=== PATIENT | female | born 1950 | race African-American/Black ===

== ENCOUNTER 2018-08-11 18:48 | Emergency (ER) | payer MEDICARE, OTHER ==
[~2018-08-11] VITALS: Ht 165.1 cm; Wt 106.6 kg
[~2018-08-11 18:48] MED LIST: AMLO10TA PO; ASPI81CT20 PO; CIPR500T4 PO; VALS160T2 PO
[2018-08-11 19:11] VITALS: BP 170/94
--- NOTE | 2018-08-11 19:19 | NUR ---
PT AMBULATED TO BED 1
--- NOTE | 2018-08-11 19:24 | NUR ---
PT TO ED WITH C/O R KNEE PAIN SUDDEN ONSET TODAY. PT DENIES INJURY OR TRAUMA. NO OBVIOUS S/S OF DEFORMITY. PT ABLE TO AMBULATE WITH ASSISTIVE DEVICE (CANE) WITH NO DIFFICULTY. PT PLACED INTO BED, PENDING MD WALLACE. PMH--HTN RX--DENIES
[2018-08-11] MEDS ORDERED: HYDROcodone/APAP 5/325 MG 1 TAB TAB PO ONE (20:25)
--- NOTE | 2018-08-11 21:54 | NUR ---
PT RESTING IN BED, VSS. ALL QUESTIONS ANSWERED.
--- NOTE | 2018-08-11 22:09 | NUR ---
Ultrasound at bedside.
[2018-08-11 23:06] VITALS: BP 151/76
== END 2018-08-11 23:06 | disposition home or self-care (01) ==
LOC: MED 18:48
DX: M17.11 Unilateral primary osteoarthritis, right knee (principal); I10 Essential (primary) hypertension; Z79.899 Other long term (current) drug therapy; Z90.49 Acquired absence of other specified parts of digestive tract
CPT/HCPCS: 73562; 93971; 99284; Q0092

== ENCOUNTER 2018-08-25 09:39 | Emergency (ER) | payer MEDICARE, OTHER ==
[~2018-08-25] VITALS: Ht 165.1 cm; Wt 104.3 kg
[2018-08-25 09:45] VITALS: BP 147/68
--- NOTE | 2018-08-25 09:53 | NUR ---
PT TO ER BED 4
--- NOTE | 2018-08-25 09:58 | NUR ---
Note undone in EDM - 08/25/18 at 1000 by [facility] BIB SELF. C/O SHARP R HIP PAIN AT 02/25 THAT INCREASES WITH MOVEMENT X4 DAYS, TREATED WITH ASPERCREAM WITH NO RELEF. DENIES FALL, TRAUMA OR INJURY. MEDHX:HTN, ARTHRITIS RX:BP MEDICINE (PT DOES NOT KNOW NAME)
--- NOTE | 2018-08-25 10:00 | NUR ---
BIB SELF WITH FWW WITH CHAIR. C/O SHARP R HIP PAIN AT 02/25 THAT INCREASES WITH MOVEMENT X4 DAYS, TREATED WITH ASPERCREAM WITH NO RELEF. DENIES FALL, TRAUMA OR INJURY. AAO X 4. PATIENT POSITIONED FOR COMFORT; HOB ELEVATED; BEDRAILS UP X2; BED DOWN. ER MADE AWARE OF PT STATUS. MEDHX:HTN, ARTHRITIS, HYPERLIPIDEMIA RX:AMLODIPINE, VALSARTAN, LYRICA Addendum: 08/25/18 at 1042 by [email or web address] med hx: HYSTERECTOMY (1997)
--- NOTE | 2018-08-25 10:00 | NUR ---
Note undone in EDM - 08/25/18 at 1024 by [facility] BIB SELF WITH FWW WITH CHAIR. C/O SHARP R HIP PAIN AT 02/25 THAT INCREASES WITH MOVEMENT X4 DAYS, TREATED WITH ASPERCREAM WITH NO RELEF. DENIES FALL, TRAUMA OR INJURY. AAO X 4. PATIENT POSITIONED FOR COMFORT; HOB ELEVATED; BEDRAILS UP X2; BED DOWN. ER MADE AWARE OF PT STATUS. MEDHX:HTN, ARTHRITIS RX:BP MEDICINE (PT DOES NOT KNOW NAME)
--- NOTE | 2018-08-25 10:19 | NUR ---
DR SCOTT AT BEDSIDE FOR PT EVALUATION
[2018-08-25] MEDS ORDERED: DEXAMETHASONE 10 MG/ML VIAL IM ONE (10:25)
[2018-08-25] MEDS ORDERED: KETOROLAC 60 MG/2 ML VIAL IM ONE (10:25)
--- NOTE | 2018-08-25 11:16 | NUR ---
PATIENT TAKEN VIA GURNEY BY [facility]
[2018-08-25 13:15] VITALS: BP 127/65
== END 2018-08-25 13:55 | disposition home or self-care (01) ==
LOC: MED 09:39
DX: M16.11 Unilateral primary osteoarthritis, right hip (principal); I10 Essential (primary) hypertension; Z79.899 Other long term (current) drug therapy
CPT/HCPCS: 72192; 96372; 99284; J1100; J1885

== ENCOUNTER 2018-12-14 10:26 | Emergency (ER) | payer MEDICARE, OTHER ==
[~2018-12-14] VITALS: Ht 165.1 cm; Wt 103.9 kg
[~2018-12-14 10:26] MED LIST changes: -ASPI81CT20 PO; -CIPR500T4 PO
[2018-12-14 10:32] VITALS: BP 123/71
--- NOTE | 2018-12-14 10:42 | NUR ---
PT BIB SELF C/O RASH X1 DAY. PT HAS RED PATCHY BLISTERY RASH ON RT BREAST THAT WRAPS AROUND TO THE BACK OF RT ARM. PT REPORTS PAIN AT 7/10 THAT IS TENDER TO TOUCH. PT TX WITH BENADRYL YESTERDAY, BUT REPORTS RASH WAS WORSE THIS MORNNG AND IS UNBALE TO SEE PCP UNTIL SUNDAY. PT DENIES N/V/D, FEVER, OR SICK CONTACTS. VSS. ER MD TO SEE PT. MEDHX:HTN RX:BP MEDICINE
[2018-12-14 12:01] VITALS: BP 148/73
--- NOTE | 2018-12-14 12:01 | NUR ---
Patient discharged with v/s stable. Written and verbal after care instructions given and explained. Patient alert, oriented and verbalized understanding of instructions. Ambulatory with steady gait. All questions addressed prior to discharge. ID band removed. Patient advised to follow up with PMD. Rx of VALACYCLOVUIR given. Patient educated on indication of medication including possible reaction and side effects. Opportunity to ask questions provided and answered.
== END 2018-12-14 17:10 | disposition home or self-care (01) ==
LOC: MED 10:26
DX: B02.9 Zoster without complications (principal); I10 Essential (primary) hypertension; Z79.899 Other long term (current) drug therapy
CPT/HCPCS: 99283

== ENCOUNTER 2019-10-03 15:19 | Emergency (ER) | payer MEDICARE, OTHER ==
[~2019-10-03] VITALS: Ht 165.1 cm; Wt 110.2 kg
[2019-10-03 15:50] VITALS: BP 149/82
[2019-10-03] MEDS ORDERED: KETOROLAC 30 MG/ML VIAL IM ONE (16:20)
[2019-10-03 17:23] LABS: BASOPHILS % (AUTO) 0.9 % (0.0-2.0); EOSINOPHILS # (AUTO) 0.2 K/uL (0-0.4); HEMATOCRIT 34.5 % (36-48); HEMOGLOBIN 11.2 g/dL (12.0-16.0); LYMPHOCYTES # (AUTO) 1.1 K/uL (2.5-16.5); LYMPHOCYTES % (AUTO) 34.8 % (20.5-51.1); MEAN CORPUSCULAR HEMOGLOBIN 32 pg (27-31); MEAN CORPUSCULAR HGB CONC 33 g/dL (33-37); MEAN CORPUSCULAR VOLUME 98.9 fL (80-94); MONOCYTES # (AUTO) 0.4 K/uL (0.8-1.0); MONOCYTES % (AUTO) 12.4 % (1.7-9.3); NEUTROPHILS # (AUTO) 1.4 K/uL (1.8-7.7); NEUTROPHILS % (AUTO) 46.9 % (42.2-75.2); PLATELET COUNT (AUTO) 140 K/uL (140-450); RED BLOOD CELL COUNT(AUTO) 3.49 MIL/uL (4.20-5.40); RED CELL DISTRIBUTION WIDTH 14.3 % (11.6-13.7)
[2019-10-03 17:40] LABS: ANION GAP 6.9 (8-16); CARBON DIOXIDE 31.5 mmol/L (21-32); CREATININE 1.1 mg/dL (0.6-1.3); POTASSIUM 4.4 mmol/L (3.5-5.1)
[2019-10-03 17:41] LABS: ALBUMIN 3.3 g/dL (3.4-5.0); TOTAL BILIRUBIN 0.3 mg/dL (0.0-1.0)
[2019-10-03 18:24] VITALS: BP 132/87
== END 2019-10-03 18:24 | disposition home or self-care (01) ==
LOC: MED 15:19
DX: L03.115 Cellulitis of right lower limb (principal); I10 Essential (primary) hypertension; Z90.49 Acquired absence of other specified parts of digestive tract; Z79.899 Other long term (current) drug therapy
CPT/HCPCS: 36415; 73700; 80053; 85025; 99284

== ENCOUNTER 2021-10-28 08:43 | Emergency (ER) | payer MEDICARE, OTHER ==
[~2021-10-28] VITALS: Ht 165.1 cm; Wt 116.6 kg
[2021-10-28 08:45] VITALS: BP 149/82
[2021-10-28] MEDS ORDERED: KETOROLAC 15 MG/ML VIAL IM ONE (09:25)
[2021-10-28 09:50] LABS: BASOPHILS % (AUTO) 0.7 % (0.0-2.0); EOSINOPHILS # (AUTO) 0.2 K/uL (0-0.4); EOSINOPHILS % (AUTO) 5.7 % (0.0-4.0); HEMATOCRIT 33.6 % (36-48); LYMPHOCYTES # (AUTO) 1.2 K/uL (2.5-16.5); LYMPHOCYTES % (AUTO) 34.1 % (20.5-51.1); MEAN CORPUSCULAR HEMOGLOBIN 30 pg (27-31); MEAN CORPUSCULAR HGB CONC 33 g/dL (33-37); MEAN CORPUSCULAR VOLUME 92.9 fL (80-94); MONOCYTES # (AUTO) 0.3 K/uL (0.8-1.0); MONOCYTES % (AUTO) 9.1 % (1.7-9.3); NEUTROPHILS # (AUTO) 1.8 K/uL (1.8-7.7); NEUTROPHILS % (AUTO) 50.4 % (42.2-75.2); PLATELET COUNT (AUTO) 160 K/uL (140-450); RED BLOOD CELL COUNT(AUTO) 3.61 MIL/uL (4.20-5.40); RED CELL DISTRIBUTION WIDTH 14.9 % (11.6-13.7); WHITE BLOOD COUNT (AUTO) 3.6 K/uL (4.8-10.8)
[2021-10-28 10:13] LABS: ALBUMIN 3.1 g/dL (3.4-5.0); ANION GAP 7.4 (8-16); ASPARTATE AMINOTRANSFERASE 22 U/L (15-37); CARBON DIOXIDE 29.9 mmol/L (21-32); CHLORIDE 108 mmol/L (98-107); CREATININE 1.1 mg/dL (0.6-1.3); GLUCOSE 98 mg/dL (74-106); POTASSIUM 4.3 mmol/L (3.5-5.1); SODIUM SERUM 141 mmol/L (136-145); TOTAL BILIRUBIN 0.5 mg/dL (0.0-1.0)
--- NOTE | 2021-10-28 10:25 | NUR ---
pt c/o right arm pain x2 weeks, hx of pinched nerve states pain has become more severe and pain medication is not working. denies cp or sob. no other symptoms. nsr on monitor.
[2021-10-28] MEDS ORDERED: GABAPENTIN 300 MG CAP PO ONE (12:00)
[2021-10-28] MEDS ORDERED: NAPR-54 PO (12:09)
[2021-10-28 12:42] VITALS: BP 127/79
[2021-10-28 17:26] LABS: UREA NITROGEN, BLOOD 26 mg/dL (7-18)
== END 2021-10-28 12:43 | disposition home or self-care (01) ==
LOC: MED 08:43
DX: S46.001A Unspecified injury of muscle(s) and tendon(s) of the rotator cuff of right shoulder, initial encounter (principal); I10 Essential (primary) hypertension
CPT/HCPCS: 36415; 71045; 73060; 80053; 84484; 85025; 96372; 99285; J1885; 93005

== ENCOUNTER 2023-03-14 06:15 | Emergency (ER) | payer MEDICARE, OTHER ==
[~2023-03-14] VITALS: Ht 165.1 cm; Wt 113.4 kg
[~2023-03-14 06:15] MED LIST changes: +NAPR-54 PO
[2023-03-14 06:32] VITALS: BP 136/71; PULSE 85; RESP 23; TEMP 97.9; O2SAT 96
[2023-03-14] MEDS ORDERED: MORPHINE SULFATE 4 MG/ML SYR IVP ONE (06:45)
[2023-03-14 07:14] LABS: APPEARANCE,URINE CLEAR (CLEAR); BILIRUBIN,URINE NEGATIVE (NEGATIVE); BLOOD, URINE TRACE-I (NEGATIVE); COLOR,URINE YELLOW (YELLOW); LEUKOCYTE ESTERASE ,URINE NEGATIVE (NEGATIVE); NITRITE, URINE NEGATIVE (NEGATIVE); PROTEIN,URINE 1+ (NEGATIVE); UGLUCOSE NEGATIVE (NEGATIVE); UROBILINOGEN,URINE 0.2 EU/dL (0.2 - 1)
[2023-03-14 07:37] LABS: BACTERIA,URINE 0-2 /HPF (None Seen); RBC,URINE 0-5 /HPF (0-5); WBC,URINE 0-5 /HPF (0-5)
[2023-03-14] MEDS ORDERED: MORPHINE SULFATE 4 MG/ML SYR ONE (08:06)
[2023-03-14 08:08] VITALS: O2SAT 96
[2023-03-14 08:18] LABS: BASOPHILS % (AUTO) 0.8 % (0.0-2.0); EOSINOPHILS # (AUTO) 0.1 K/uL (0-0.4); EOSINOPHILS % (AUTO) 2.4 % (0.0-4.0); HEMATOCRIT 30.8 % (36-48); HEMOGLOBIN 10.1 g/dL (12.0-16.0); LYMPHOCYTES # (AUTO) 0.9 K/uL (2.5-16.5); LYMPHOCYTES % (AUTO) 20.6 % (20.5-51.1); MEAN CORPUSCULAR HEMOGLOBIN 31 pg (27-31); MEAN CORPUSCULAR HGB CONC 33 g/dL (33-37); MONOCYTES # (AUTO) 0.5 K/uL (0.8-1.0); MONOCYTES % (AUTO) 10.5 % (1.7-9.3); NEUTROPHILS # (AUTO) 2.9 K/uL (1.8-7.7); NEUTROPHILS % (AUTO) 65.7 % (42.2-75.2); PLATELET COUNT (AUTO) 190 K/uL (140-450); RED BLOOD CELL COUNT(AUTO) 3.24 MIL/uL (4.20-5.40); RED CELL DISTRIBUTION WIDTH 15.7 % (11.6-13.7); WHITE BLOOD COUNT (AUTO) 4.4 K/uL (4.8-10.8)
[2023-03-14 08:41] LABS: LACTIC ACID 0.8 mmol/L (0.4-2.0)
[2023-03-14 08:43] LABS: INR 0.92 (0.8-1.2); PARTIAL THROMBOPLASTIN TIME 26.8 secs (22-35.6); PROTHROMBIN TIME 9.7 secs (10.8-13.4)
[2023-03-14 08:47] LABS: ALANINE AMINOTRANSFERASE 15 U/L (12-78); ALBUMIN 3.2 g/dL (3.4-5.0); ALKALINE PHOSPHATASE 93 U/L (50-136); ANION GAP 10.7 (8-16); ASPARTATE AMINOTRANSFERASE 22 U/L (15-37); CALCIUM 9.4 mg/dL (8.5-10.1); CARBON DIOXIDE 26.8 mmol/L (21-32); CHLORIDE 101 mmol/L (98-107); GLUCOSE 93 mg/dL (74-106); LIPASE 173 U/L (73-393); POTASSIUM 3.5 mmol/L (3.5-5.1); SODIUM SERUM 135 mmol/L (136-145); TOTAL BILIRUBIN 0.4 mg/dL (0.0-1.0); TOTAL PROTEIN, SERUM 8.4 g/dL (6.4-8.2); UREA NITROGEN, BLOOD 8 mg/dL (7-18)
[2023-03-14] MEDS ORDERED: HYDROcodone/APAP 5/325 MG 1 TAB TAB PO ONE (10:40)
[2023-03-14] MEDS ORDERED: ACET-8905 PO ×2 (10:44→11:04)
[2023-03-14 10:47] VITALS: BP 136/71; PULSE 85; RESP 18; TEMP 97.9; O2SAT 96
== END 2023-03-14 10:47 | disposition home or self-care (01) ==
LOC: MED 06:15
DX: R10.9 Unspecified abdominal pain (principal); D72.819 Decreased white blood cell count, unspecified; D50.9 Iron deficiency anemia, unspecified; E87.1 Hypo-osmolality and hyponatremia; I10 Essential (primary) hypertension; Z90.49 Acquired absence of other specified parts of digestive tract; Z79.899 Other long term (current) drug therapy; Z90.710 Acquired absence of both cervix and uterus
CPT/HCPCS: 36415; 74176; 80053; 81001; 83605; 83690; 84484; 85025; 85610; 85730; 87040; 93005; 96374; 99285; J2270

== ENCOUNTER 2023-06-02 09:04 | Emergency (ER) | payer MEDICARE, OTHER ==
[~2023-06-02] VITALS: Ht 165.1 cm; Wt 108.9 kg
[~2023-06-02 09:04] MED LIST changes: +ACET-8905 PO
[2023-06-02 09:17] VITALS: BP 151/72; PULSE 87; RESP 20; TEMP 100.7; O2SAT 98
[2023-06-02] MEDS ORDERED: PROM118S5 PO (10:22)
[2023-06-02] MEDS ORDERED: NIRM1TAB9 PO (10:22)
[2023-06-02] MEDS ORDERED: ACET-10509 PO (10:22)
[2023-06-02] MEDS ORDERED: BENZ200C4 PO (10:22)
[2023-06-02] MEDS ORDERED: BENZ100C6 PO (10:38)
[2023-06-02 11:09] LABS: FLU A ANTIGEN negative (NEGATIVE); FLU B ANTIGEN NEGATIVE (NEGATIVE)
== END 2023-06-02 10:39 | disposition home or self-care (01) ==
LOC: MED 09:04
DX: U07.1 COVID-19 (principal); I10 Essential (primary) hypertension; Z79.899 Other long term (current) drug therapy
CPT/HCPCS: 71045; 99284

== ENCOUNTER 2023-09-20 13:49 | Emergency (ER) | payer MEDICARE, OTHER ==
[~2023-09-20] VITALS: Ht 165.1 cm; Wt 103.0 kg
[~2023-09-20 13:49] MED LIST changes: +ACET-10509 PO; +BENZ100C6 PO; +BENZ200C4 PO; +NIRM1TAB9 PO; +PROM118S5 PO
[2023-09-20 14:03] VITALS: BP 167/75; PULSE 87; RESP 19; TEMP 98.9; O2SAT 100
[2023-09-20] MEDS: SODIUM PHOSPHATE 118 ML ENEM RC ONE (15:40)
[2023-09-20] MEDS ORDERED: MAGN296S70 PO (16:08)
[2023-09-20] MEDS ORDERED: MIRABULK PO (16:08)
== END 2023-09-20 16:24 | disposition home or self-care (01) ==
LOC: MED 13:49
DX: K59.00 Constipation, unspecified (principal); I10 Essential (primary) hypertension; Z79.1 Long term (current) use of non-steroidal anti-inflammatories (NSAID); Z79.899 Other long term (current) drug therapy
CPT/HCPCS: 74022; 99283; 99284

== ENCOUNTER 2024-03-20 10:17 | Emergency (ER) | payer MEDICARE, OTHER ==
[~2024-03-20] VITALS: Ht 165.1 cm; Wt 101.3 kg
[~2024-03-20 10:17] MED LIST changes: -ACET-10509 PO; +ACET500T99 PO; +MAGN296S70 PO; +MIRABULK PO; +NAPR-337 PO; -NAPR-54 PO
[2024-03-20 10:50] VITALS: BP 165/71; PULSE 85; RESP 18; TEMP 98.1; O2SAT 100
[2024-03-20] MEDS ORDERED: PROM473S5 PO (12:10)
[2024-03-20 12:15] LABS: FLU A ANTIGEN negative (NEGATIVE); FLU B ANTIGEN NEGATIVE (NEGATIVE)
== END 2024-03-20 12:20 | disposition home or self-care (01) ==
LOC: MED 10:17
DX: J06.9 Acute upper respiratory infection, unspecified (principal); Z20.822 Contact with and (suspected) exposure to COVID-19; I10 Essential (primary) hypertension; Z79.899 Other long term (current) drug therapy
CPT/HCPCS: 99283